=== PATIENT | male | born 1980 | race Two or more races ===

== ENCOUNTER 2020-04-08 17:14 | Emergency (ER) | payer SELFPAY ==
[~2020-04-08] VITALS: Ht 188 cm; Wt 100.0 kg
[2020-04-08] MEDS ORDERED: SODIUM CHLORIDE 0.9% 1,000ML IVBOLUS ONE (17:30)
[2020-04-08] MEDS ORDERED: SODIUM CHLORIDE FLUSH 10ML SYR IVF ONE (17:30)
[2020-04-08] MEDS ORDERED: THIAMINE 100 MG in SODIUM CHLORIDE 0.9% 50 ML IVPB ONE (17:30)
--- NOTE | 2020-04-08 17:36 | NUR ---
THIS IS A 39 YEAR OLD MALE WHO WAS BIB BY AMBULANCE DUE TO ETOH. PT ALERT TO SELF, KEEPS ATTEMPTING TO GET OUT OF BED, BROTHER AT BS
--- NOTE | 2020-04-08 18:04 | NUR ---
PT CONTINUES OT ATTEMPT TO GET OUT OF BED, ASKED FOR SITTER. PT UNSTEADY
[2020-04-08] MEDS ORDERED: LORazepam 2 MG/ML, 1ML ONE (18:09)
[2020-04-08 18:12] LABS: MEAN CORPUSCULAR HEMOGLOBIN 29.4 pg (27.5-34.5); MEAN CORPUSCULAR HGB CONC 35.3 g/dL (33.2-36.2); MEAN PLATELET VOLUME 7.8 fL (7.4-10.4); PLATELET COUNT 271 x10^3/uL (130-400); RED BLOOD COUNT 5.48 x10^6/uL (4.38-5.82)
[2020-04-08 18:19] LABS: ALANINE AMINOTRANSFERASE 71 U/L (12-78); ANION GAP 9 mmol/L (5-15); CALCIUM 8.7 mg/dL (8.5-10.1); CHLORIDE 101 mmol/L (98-107); CREATININE 0.78 mg/dL (0.7-1.3)
[2020-04-08 18:26] LABS: ALKALINE PHOSPHATASE 137 U/L (45-117); BILIRUBIN,TOTAL 1.5 mg/dL (0.2-1.0); TOTAL PROTEIN 8.8 g/dL (6.4-8.2)
[2020-04-08] MEDS ORDERED: LORazepam 2 MG/ML, 1ML IVPush ONE (18:30)
--- NOTE | 2020-04-08 18:31 | NUR ---
ASSISTED X 3 TO BATHROOM. BACK TO BED, PT ALERT AND STILL ATTEMPTING TO GET OUT OF BED. CONSTANT REINFORCEMENT AND EDUCATION TO RETURN TO BED
--- NOTE | 2020-04-08 18:42 | NUR ---
PT SLEEPING RESP EVEN AND UNLABORED.
[2020-04-08 18:48] LABS: MD YES
--- NOTE | 2020-04-08 20:10 | NUR ---
REPORT FROM CHRIS TRAN. PT SLEEPING, RR EQUAL AND UNLABORED. SITTER IN LINE OF SITE. WILL CONTINUE TO MONITOR.
[2020-04-08 20:47] LABS: <PLATELET ESTIMATE> ADEQUATE; <PLT MORPHOLOGY> NORMAL PLT MORPH; <RBC MORPHOLOGY> NORMAL; BAND#(MANUAL) 0.05 x10^3/uL; BANDS%(MANUAL) 1 % (0-7); BASOS#(MANUAL) 0.05 x10^3/uL (0-0.1); BASOS% (MANUAL) 1 % (0-1); EOS#(MANUAL) 0.05 x10^3/uL (0.0-0.4); EOS% (MANUAL) 1 % (1-7); LYMPH#(MANUAL) 2.35 x10^3/uL (1-3.4); LYMPHS% (MANUAL) 47 % (22-44); MONOS% (MANUAL) 6 % (2-9); REACTIVE LYMPHS # (MANUAL) 0.85 x10^3/uL (0-0); REACTIVE LYMPHS % (MANUAL) 17 % (0-0); SEG#(MANUAL) 1.35 x10^3/uL (1.8-6.8); SEGS% (MANUAL) 27 % (42-75)
--- NOTE | 2020-04-08 21:52 | NUR ---
Pt found to have visitor in room. He is his step dad, pt is still too intox to be dc very difficult to wake up, slurred speach, unable to walk etc. Registartion was given his real name and according to the step dad. Step dads number was taken as well.
--- NOTE | 2020-04-08 22:14 | NUR ---
Alerted by sitter pt pulled out his hand IV and attempted to leave. Pt stumbling, slurred speach unable to stop bleeding from IV site due to his own acute intox. Staff maintained compression to IV site; cath intact. Pressure dressing. Pt put back into [facility], on cont pulse ox, side rails up. Provided with urinal and water.
--- NOTE | 2020-04-08 22:38 | NUR ---
Pt able to hold conversation now, all IV dc'd. Pt able to ambulate with steady gait. Says he wants to go home. Agrees to go home with his step-dad. Tim liz called, he will pick him up.
--- NOTE | 2020-04-08 23:26 | NUR ---
Step dad here, to take pt home. IV dc cath intact, pressure dressing. Pt steady gait, alert and oriented able to be dc home safely with family. Family verbalizes understanding of instruct and fu. To return to ER if worse or concerns.
--- NOTE | 2020-04-08 23:30 | NUR ---
VSS, DC with all belongings including cellphone and optical manager to the care of his step dad. 120/88, HR 88, a/ox4.
== END 2020-04-08 23:48 | disposition home or self-care (01) ==
LOC: ED 22:04
DX: F10.121 Alcohol abuse with intoxication delirium (principal); R41.82 Altered mental status, unspecified; Y90.0 Blood alcohol level of less than 20 mg/100 ml
CPT/HCPCS: 36415; 80053; 80320; 83690; 85025; 96361; 96374; 96375; 99284; J2060; J3411; J7030; G0480